=== PATIENT | female | born 1995 | race Asian ===

== ENCOUNTER 2025-06-06 08:43 | Inpatient (IN) ==
[2025-06-06] MEDS ORDERED: LIDOCAINE 1% LOCAL 20 ML VIAL INFIL PRN (09:38)
[2025-06-06] MEDS ORDERED: OXYTOCIN 30 UNITS/NSS 30 UNITS/500 ML BAG IV PRN (09:38)
[2025-06-06 10:10] LABS: Hematocrit (blood only) 35.4 % (37.0-47.0); Hemoglobin 12.1 g/dl (12.0-16.0); Mean Corpuscular Hemoglobin 31.0 pg (25.0-34.0); Mean Corpuscular Volume 90.8 fL (80.0-100.0); Platelet Count 149 K/uL (130-400); RDW Standard Deviation 41.6 fL (36.4-46.3); Red Blood Count 3.90 M/uL (4.20-5.40); White Blood Count 8.92 K/ul (4.8-10.8)
[2025-06-06] MEDS: LACTATED RINGER'S 1,000 ML IV PRN (10:12)
[2025-06-06] MEDS: PENICILLIN GK 6 MU in DEXTROSE 5% 250 ML IV STA (10:12)
[2025-06-06] MEDS: OXYTOCIN 30 UNITS/NSS 30 UNITS/500 ML BAG IV PRN (11:18)
[2025-06-06] MEDS ORDERED: ROPIVACAINE 0.5% PF 5 MG/ML 20 ML VIAL EPI PRN (12:16)
[2025-06-06] MEDS ORDERED: BUPIVACAINE 0.25% PF 30 ML VIAL EPI PRN (12:16)
[2025-06-06] MEDS ORDERED: fentANYL 2 MCG/ML BUPIVacaine 0.125%-NSS 100ML BAG EPI PRN (12:16)
[2025-06-06] MEDS ORDERED: NALOXONE HCL 1 MG in SODIUM CHLORIDE 0.9% 1,000 ML IV PRN ×2 (12:16→19:32)
[2025-06-06] MEDS ORDERED: NALBUPHINE HCL INJ 10 MG/ML AMP IV PRN ×2 (12:16→19:32)
[2025-06-06] MEDS ORDERED: LIDOCAINE 2% MPF LOCAL 5 ML VIAL EPI PRN (12:16)
[2025-06-06] MEDS ORDERED: diphenhydrAMINE 50 MG/ML VIAL IV PRN ×3 (12:16→19:32)
[2025-06-06] MEDS ORDERED: SODIUM CHLORIDE 0.9% PF INJ 10 ML VIAL EPI PRN (12:16)
[2025-06-06] MEDS ORDERED: NALOXONE HCL 0.4 MG/1 ML VIAL/CARP IV PRN ×2 (12:16→19:32)
--- NOTE | 2025-06-06 12:16 | Anesthesiology Consultation ---
Date of Service June 06, 2025 Assessment & Plan Chart Review Chart Review: Acceptable Risk for Surgery and Patient NOT seen in Pre Admission Testing Consults Requested none History Height/Weight Height: 4 ft 11 in Weight: 59.874 kg Allergies Allergy/AdvReac Type Severity Reaction Status Date / Time No Known Allergies Allergy Verified 06/02/25 16:10 Medications Home Medications Medication Instructions Recorded Confirmed Last Taken escitalopram oxalate 10 mg tablet 10 mg PO DAILY 06/19/24 06/06/25 Unknown (Lexapro) promethazine 12.5 mg tablet 12.5 mg PO Q6H PRN nausea and 12/24/24 06/06/25 Unknown vomiting #14 tabs acetone (urine) test (Ketone Urine #50 ea 04/16/25 06/02/25 Unknown Test strips) blood sugar diagnostic (OneTouch #150 ea 04/16/25 06/02/25 Unknown Verio test strips) blood-glucose meter (OneTouch #1 ea 04/16/25 06/02/25 Unknown Verio Flex Meter) lancets 33 gauge (OneTouch Delica #150 ea 04/16/25 06/02/25 Unknown Plus Lancet) vits no.124-ferrous fum 1 tab PO DAILY 06/06/25 06/06/25 Unknown 27 mg iron-folic acid 800 mcg tablet ( Vitamin) Active Medications Generic Name Dose Route Start Last Admin Trade Name Freq PRN Reason Stop Dose Admin Lactated Ringer's 1,000 mls @ 125 mls/hr 06/06/25 09:38 06/06/25 10:12 Lr IV 06/08/25 09:37 125 mls/hr .Q8H PRN Administration L&D Protocol Protocol Oxytocin 30 units in 500 mls @ 2 mls/hr 06/06/25 10:11 06/06/25 11:18 Pitocin 30 Units/Nss IV 06/08/25 10:10 0.12 units/hr .Q24H PRN 2 mls/hr Labor Induction/Augmentation Administration Protocol 0.12 UNITS/HR Past Medical History Medical History History of chicken pox PTSD (post-traumatic stress disorder) (05/14/24) Changing pigmented skin lesion Past Family History Family History Grandfather (Maternal) Diabetes Denies family history of Ovarian cancer Breast cancer Colorectal cancer Past Surgical History Surgical History History of removal of skin mole S/P wisdom tooth extraction Social History Smoking Status: Never smoker Do You Dip or Chew Tobacco: No Hx Alcohol Use: No Hx Substance Use: No substance use type: does not use Physical Exam Vital Signs Last Vital Signs Temp 37.0 C 06/06/25 11:22 Pulse 95 H 06/06/25 11:22 Resp 16 06/06/25 11:22 BP 107/66 06/06/25 11:22 Testing Laboratory Results 06/06/25 09:55 06/06/25 10:20 POC Glucose 104 H
[2025-06-06] MEDS: fentANYL 2 MCG/ML BUPIVacaine 0.125%-NSS 100ML BAG ONE (12:42)
[2025-06-06] MEDS: LIDOCAINE 2%/EPINEPHRINE 1:200,000 20 ML PF ONE (12:46)
[2025-06-06] MEDS: SODIUM CHLORIDE 0.9% PF INJ 10 ML VIAL ONE (12:47)
[2025-06-06] MEDS: BUPIVACAINE 0.25% PF 30 ML VIAL ONE (12:47)
[2025-06-06] MEDS: BUPIVACAINE 0.25% PF 30 ML VIAL EPI STA (12:47)
[2025-06-06] MEDS: LIDOCAINE 2%/EPINEPHRINE 1:200,000 20 ML PF EPI STA (12:48)
[2025-06-06] MEDS: SODIUM CHLORIDE 0.9% PF INJ 10 ML VIAL EPI STA (12:48)
[2025-06-06] MEDS: PENICILLIN GK 3 MU in DEXTROSE 5% 100 ML IV PRN (14:05)
[2025-06-06] MEDS ORDERED: LACTATED RINGER'S 1,000 ML IV SCH ×2 (15:15→16:15)
--- NOTE | 2025-06-06 15:21 | Labor Progress Brief Note ---
Date of Service June 06, 2025 Subjective 29yo @ 36w1d with PPROM. Patient has been admitted, given PCN for GBS unknown , and augmented with pitocin. Her pain was addressed with an epidural which she requested shortly after arrival, at 1-2cm dilation. She is comfortable physically but anxious about well being. This was a conceived with donor sperm. Her parents are here as her support persons today. Assessment & Plan (1) PROM (premature rupture of membranes): Plan: PPROM at 36w1d, with heart rate Cat 2 during contractions. Repositioning and fluid boluses not restoring Cat 1 FHT so far. No cervical change between admission and now. Patient counseled that she is remote from delivery, and while we do not need to make a change in plans right now, we will need to observe her closely as we try to use resuscitation measures to allow her to continue being induced. RN Corazon in room during counseling. We explained what the late decelerations clearly visible on her tracing indicate. We also discussed that she could elect a now, if she prefers. She asked good questions about the risks and benefits of both induction to a vaginal delivery and proceeding now to . The patient would like to abandon induction and move to now. Pitocin was stopped. Of note, decelerations do cease when contractions space apart, therefore a diagnosis of intolerance to labor will be applied and we will proceed with delivery. Admission and Anticipated Discharge Date Admission Date: June 06, 2025 Physical Exam Genitourinary: 2/90/-2 LOF clear continues FHT 140 mod fish no acc +late decels Ctx in an irregular pattern with coupleting and tripleting followed by longer spaces of several minutes without ctx. Decels are noted during or after the contraction groupings. Pit @ 4 Results & Data Vital Signs (Past 12 Hours) Vital Signs Temp Pulse Resp BP Pulse Ox 06/06/25 15:10 99 06/06/25 15:10 99 H 06/06/25 15:05 100 06/06/25 15:05 95 H 06/06/25 15:00 98 06/06/25 15:00 80 06/06/25 15:00 103/59 L 06/06/25 14:55 98 06/06/25 14:55 71 06/06/25 14:50 98 06/06/25 14:50 99 H 06/06/25 14:45 98 06/06/25 14:45 72 06/06/25 14:45 71 06/06/25 14:45 108/62 06/06/25 14:40 98 06/06/25 14:40 85 06/06/25 14:35 98 06/06/25 14:35 91 H 06/06/25 14:31 71 06/06/25 14:31 103/58 L 06/06/25 14:30 98 06/06/25 14:30 71 06/06/25 14:25 98 06/06/25 14:25 75 06/06/25 14:20 97 06/06/25 14:20 71 06/06/25 14:16 16 06/06/25 14:16 98.4 F 16 06/06/25 14:16 91 H 06/06/25 14:16 99/56 L 06/06/25 14:15 99 06/06/25 14:15 73 06/06/25 14:10 99 06/06/25 14:10 74 06/06/25 14:05 97 06/06/25 14:05 76 06/06/25 14:00 98 06/06/25 14:00 77 06/06/25 14:00 115/68 06/06/25 13:55 97 06/06/25 13:55 75 06/06/25 13:50 97 06/06/25 13:50 75 06/06/25 13:45 98 06/06/25 13:45 80 06/06/25 13:44 16 06/06/25 13:44 16 06/06/25 13:44 80 06/06/25 13:44 104/56 L 06/06/25 13:40 99 06/06/25 13:40 101 H 06/06/25 13:35 98 06/06/25 13:35 75 06/06/25 13:30 98 06/06/25 13:30 93 H 06/06/25 13:29 102 H 06/06/25 13:29 98/55 L 06/06/25 13:25 98 06/06/25 13:25 76 06/06/25 13:20 99 06/06/25 13:20 103 H 06/06/25 13:15 98 06/06/25 13:15 76 06/06/25 13:11 89 06/06/25 13:11 96/55 L 06/06/25 13:10 98 06/06/25 13:10 90 06/06/25 13:06 104 H 06/06/25 13:06 94/50 L 06/06/25 13:05 98 06/06/25 13:05 98 H 06/06/25 13:01 90 06/06/25 13:01 94/55 L 06/06/25 13:00 98 06/06/25 13:00 87 06/06/25 12:56 94 H 06/06/25 12:56 95/53 L 06/06/25 12:55 98 06/06/25 12:55 93 H 06/06/25 12:51 83 06/06/25 12:51 100/57 L 06/06/25 12:50 98 06/06/25 12:50 83 06/06/25 12:46 80 06/06/25 12:46 102/58 L 06/06/25 12:45 98 06/06/25 12:45 81 06/06/25 12:44 77 06/06/25 12:44 100/55 L 06/06/25 12:42 78 06/06/25 12:42 109/59 L 06/06/25 12:40 99 06/06/25 12:40 79 06/06/25 12:40 111/65 06/06/25 12:35 98 06/06/25 12:35 89 06/06/25 12:30 98 06/06/25 12:30 89 06/06/25 12:25 98 06/06/25 12:25 89 06/06/25 12:22 96 H 06/06/25 12:22 124/78 06/06/25 12:20 100 06/06/25 12:20 93 H 06/06/25 12:15 98 06/06/25 12:15 89 06/06/25 12:14 20 06/06/25 12:14 98.8 F 20 06/06/25 11:22 16 06/06/25 11:22 98.6 F 16 06/06/25 11:22 95 H 06/06/25 11:22 107/66 07/26/25 09:00 98.2 F 18 07/26/25 08:56 82 113/67 Coding Level of Care Code None Diagnoses PROM (premature rupture of membranes) O42.90
[2025-06-06] MEDS ORDERED: MoRPHine SULFATE PF 1 MG/ML 10 ML AMP/VIAL ONE ×2 (15:24→18:41)
[2025-06-06] MEDS ORDERED: OXYTOCIN 10 UNITS/ML VIAL ONE ×2 (15:24→18:41)
[2025-06-06] MEDS ORDERED: PHENYLEPHRINE HCL 10 MG/ML VIAL ONE (15:28)
[2025-06-06] MEDS ORDERED: LIDOCAINE 2%/EPINEPHRINE 1:200,000 20 ML PF ONE ×2 (15:31→19:01)
[2025-06-06] MEDS: ACETAMINOPHEN 500 MG TAB PO SCH (17:42)
[2025-06-06] MEDS: AZITHROMYCIN 500 MG/255 ML BAG IV SCH (17:47)
[2025-06-06] MEDS: CITRIC ACID/SODIUM CITRATE 15 ML UDC PO SCH (18:08)
--- NOTE | 2025-06-06 19:07 | Operative Report ---
PG Post Operative Report Pre & Post Diagnosis Operation Date: 06/06/25 15:20 Pre-Op Diagnosis: 1. PPROM at 36 weeks 1 day gestation 2. Gestational Diabetes 2. intolerance to labor Post-Op Diagnosis: Same plus delivery of live female I identified the patient and participated in the time-out.: Yes Procedure Operation Date: 06/06/25 15:20 Actual Procedures 1' Low Transverse Section Surgeon Delia Baugh MD Retail Account Executive Corazon Young RN Estimated Blood Loss 523 (QBL) Findings Consistent with Post-Op Diagnosis Specimens Placenta, Cord blood Anesthesia Type L&D Only Epidural Exists Complications none Disposition Accompanied Patient To Recovery: Yes Disposition: L&D Description of Procedure The patient was placed operating table in the supine position with a leftward tilt. She was prepped and draped in standard sterile fashion. The anesthetic was tested and found to be adequate. A time-out was held, identifying correct patient, procedure, positioning and preoperative antibiotics. There were no concerns. A Pfannenstiel skin incision was made with a knife and taken down to the underlying layer of fascia. The fascia was incised in the midline with the knife and taken out laterally with scissors. The superior edge of the fascial incision was grasped, elevated and dissected off the underlying rectus both superiorly and inferiorly. The muscles were bluntly in the midline. The peritoneum was entered bluntly. The incision was then stretched. The bladder retractor was placed. The vesicouterine peritoneum was identified, entered with scissors and taken out laterally with scissors. The bladder flap was created digitally. A hysterotomy incision was created transversely in the lower uterine segment, final entry being accomplished in a blunt manner with the woodyard crane operator's fingers. Clear amniotic fluid was encountered. The woodyard crane operator's hand was used to elevate the head to the hysterotomy. The head was delivered using mild fundal pressure, and the shoulders and body followed without difficulty. The cord was clamped and cut and the was then handed off to the awaiting communication specialist. Cord blood was obtained. The placenta was Manually extracted. The uterus was exteriorized and cleared of all clot and debris with moistened laparotomy sponges. The hysterotomy incision was repaired in two layers, the first in a running locked layer, the second in an imbricating layer. The ovaries and tubes were seen to be normal bilaterally. The uterus was gently replaced in the abdomen, and the gutters were cleared of clot and debris. A final inspection of the hysterotomy revealed good hemostasis. The rectus muscles were allowed to reapproximate naturally. The fascia was then reapproximated with 1 Vicryl in a running nonlocked manner. The fascia was examined and found to be free of defect following closure. The subcutaneous tissue was copiously irrigated, then the skin edges were closed with 4-0 monocryl in a subcuticular fashion. A dermabond dressing was applied. The kaminski was found to be draining clear yellow urine at completion of the procedure. I attest to the content of the Intraoperative Record and any orders documented therein. Any exceptions are noted below. I attest to the content of the Intraoperative Record and any orders documented therein. Any exceptions are noted below. OB Procedure Charges 04392
[2025-06-06] MEDS ORDERED: CALCIUM CARBONATE 500 MG CHEWABLE TAB PO PRN (19:25)
[2025-06-06] MEDS ORDERED: PROMETHAZINE 12.5 MG/50.5 ML BAG IV PRN (19:25)
[2025-06-06] MEDS ORDERED: MAGNESIUM HYDROXIDE SUSP 30 ML UDC PO PRN (19:25)
[2025-06-06] MEDS ORDERED: HYDROCORTISONE ACETATE 25 MG SUPP PR PRN (19:25)
[2025-06-06] MEDS ORDERED: ONDANSETRON INJ 2 MG/ML 2 ML VIAL IV PRN ×2 (19:25→19:32)
[2025-06-06] MEDS ORDERED: HYDROmorphone INJ 0.5 MG/0.5 ML SYR IV PRN ×2 (19:25→19:32)
[2025-06-06] MEDS ORDERED: diphenhydrAMINE Capsule 25 MG CAP PO PRN (19:25)
[2025-06-06] MEDS ORDERED: BENZOCAINE 20% SPRY 85 APPLN/85 GM CAN EXT PRN (19:25)
[2025-06-06] MEDS ORDERED: SENNA 8.6 MG TAB PO PRN (19:25)
[2025-06-06] MEDS ORDERED: NALOXONE HCL 0.08 MG in SYRINGE 1.8 ML IV PRN (19:32)
[2025-06-06] MEDS ORDERED: MoRPHine SULFATE 2 MG/ML CARP IV PRN (19:32)
[2025-06-06] MEDS ORDERED: ACETAMINOPHEN 1,000 MG/100 ML VIAL IV PRN (19:32)
[2025-06-06] MEDS ORDERED: MEPERIDINE HCL 25 MG/ML CARP/VIAL IV PRN (19:32)
[2025-06-06] MEDS ORDERED: PROMETHAZINE 6.25 MG/50.25 ML BAG IV PRN (19:32)
[2025-06-06] MEDS ORDERED: MoRPHine SULFATE PF 1 MG/ML 10 ML AMP/VIAL INT SPINAL ONE (19:32)
[2025-06-06] MEDS ORDERED: KETOROLAC 30 MG/ML VIAL IV PRN (19:32)
[2025-06-06] MEDS: KETOROLAC 30 MG/ML VIAL IV SCH (19:43)
[2025-06-06] MEDS ORDERED: SODIUM CHLORIDE 0.9% 1,000 ML IV SCH (19:45)
[2025-06-06] MEDS ORDERED: NO NARCOTICS OR SEDATIVES SCH (19:45)
[2025-06-06] MEDS: LACTATED RINGER'S 500 ML IV PRN (19:50)
[2025-06-06] MEDS: DIPHTHER/TETAN/PERTUS Vaccine (Tdap, Adol/Adult) 0.5mL IM ONE (19:51)
[2025-06-06] MEDS: LACTATED RINGER'S 1,000 ML IV SCH (19:51)
[2025-06-06] MEDS: OXYTOCIN 20 UNITS/LR 1,002 ML IV SCH (19:54)
--- NOTE | 2025-06-06 21:35 | Anesthesiology Progress Note ---
Date of Service June 06, 2025 Anesthesia Post Procedure Vital Signs Vital Signs: Temp Pulse Resp BP BP Pulse Ox O2 Del Method 06/06/25 21:29 93 06/06/25 21:29 87 06/06/25 21:26 86 06/06/25 21:26 108/64 06/06/25 21:24 94 06/06/25 21:24 86 06/06/25 21:22 94 06/06/25 21:22 88 06/06/25 21:19 98 06/06/25 21:19 89 06/06/25 21:15 91 H 06/06/25 21:15 96/53 L 06/06/25 21:14 94 06/06/25 21:14 91 H 06/06/25 21:11 92 06/06/25 21:11 91 H 06/06/25 21:09 96 06/06/25 21:09 87 06/06/25 21:06 83 06/06/25 21:06 99/58 L 06/06/25 21:04 97 06/06/25 21:04 89 06/06/25 20:59 96 06/06/25 20:59 85 06/06/25 20:56 88 06/06/25 20:56 109/56 L 06/06/25 20:54 98 06/06/25 20:54 90 06/06/25 20:50 93 06/06/25 20:50 97 H 06/06/25 20:49 97 06/06/25 20:49 95 H 06/06/25 20:46 89 06/06/25 20:46 112/77 06/06/25 20:44 97 06/06/25 20:44 92 H 06/06/25 20:39 98 06/06/25 20:39 88 06/06/25 20:38 92 06/06/25 20:38 92 H 06/06/25 20:36 85 06/06/25 20:36 99/61 L 06/06/25 20:34 100 06/06/25 20:34 87 06/06/25 20:29 99 06/06/25 20:29 80 06/06/25 20:29 91 06/06/25 20:29 82 06/06/25 20:26 81 06/06/25 20:26 120/64 06/06/25 20:24 99 06/06/25 20:24 81 06/06/25 20:19 100 06/06/25 20:19 87 06/06/25 20:16 85 06/06/25 20:16 92/56 L 06/06/25 20:14 100 06/06/25 20:14 81 06/06/25 20:11 92 06/06/25 20:11 87 06/06/25 20:10 36.6 C 12 100 Room Air 06/06/25 20:09 97 06/06/25 20:09 91 H 06/06/25 20:06 97 H 06/06/25 20:06 81/52 L 06/06/25 20:04 89 L 06/06/25 20:04 87 06/06/25 19:59 100 06/06/25 19:59 85 06/06/25 19:56 81 06/06/25 19:56 98/50 L 06/06/25 19:54 100 06/06/25 19:54 85 06/06/25 19:50 85 06/06/25 19:50 100/51 L 06/06/25 19:49 98 06/06/25 19:49 82 06/06/25 19:46 90 06/06/25 19:46 86/43 L 06/06/25 19:44 98 06/06/25 19:44 86 06/06/25 19:39 98 06/06/25 19:39 92 H 06/06/25 19:36 93 H 06/06/25 19:36 80/45 L 06/06/25 19:34 98 06/06/25 19:34 90 06/06/25 19:29 99 06/06/25 19:29 93 H 06/06/25 19:25 88 06/06/25 19:25 99/58 L 06/06/25 19:24 97 06/06/25 19:24 90 06/06/25 19:22 93 06/06/25 19:22 92 H 06/06/25 19:19 100 06/06/25 19:19 89 06/06/25 19:18 85 06/06/25 19:18 102/59 L 06/06/25 19:17 93 06/06/25 19:17 87 06/06/25 19:14 98 06/06/25 19:14 85 06/06/25 19:11 92 06/06/25 19:11 78 06/06/25 19:10 36.5 C 10 L 97/47 L 100 Room Air 06/06/25 19:09 99 06/06/25 19:09 79 06/06/25 19:06 87 06/06/25 19:06 97/47 L 06/06/25 18:15 83 06/06/25 18:15 113/65 06/06/25 18:10 98 06/06/25 18:10 78 06/06/25 18:09 93 06/06/25 18:09 98 H 06/06/25 18:05 98 06/06/25 18:05 85 06/06/25 18:00 98 06/06/25 18:00 83 06/06/25 17:59 86 06/06/25 17:59 102/56 L 06/06/25 17:55 98 06/06/25 17:55 81 06/06/25 17:50 98 06/06/25 17:50 92 H 06/06/25 17:49 92 06/06/25 17:49 89 06/06/25 17:45 98 06/06/25 17:45 80 06/06/25 17:44 82 06/06/25 17:44 119/67 06/06/25 17:40 97 06/06/25 17:40 89 06/06/25 17:35 97 06/06/25 17:35 80 06/06/25 17:30 97 06/06/25 17:30 88 06/06/25 17:30 118/68 06/06/25 17:25 97 06/06/25 17:25 74 06/06/25 17:20 97 06/06/25 17:20 78 06/06/25 17:15 97 06/06/25 17:15 81 06/06/25 17:15 73 06/06/25 17:15 107/56 L 06/06/25 17:10 98 06/06/25 17:10 88 06/06/25 17:07 16 06/06/25 17:07 37.2 C 16 06/06/25 17:05 96 06/06/25 17:05 78 06/06/25 17:00 97 06/06/25 17:00 82 06/06/25 16:59 20 06/06/25 16:59 20 06/06/25 16:59 93 H 06/06/25 16:59 101/58 L 06/06/25 16:55 97 06/06/25 16:55 86 06/06/25 16:50 98 06/06/25 16:50 88 06/06/25 16:45 97 06/06/25 16:45 80 06/06/25 16:45 111/55 L 06/06/25 16:40 97 06/06/25 16:40 88 06/06/25 16:35 97 06/06/25 16:35 75 06/06/25 16:30 98 06/06/25 16:30 82 06/06/25 16:30 105/57 L 06/06/25 16:25 97 06/06/25 16:25 79 06/06/25 16:20 97 06/06/25 16:20 76 06/06/25 16:15 98 06/06/25 16:15 101 H 06/06/25 16:14 90 06/06/25 16:14 103/55 L 06/06/25 16:10 97 06/06/25 16:10 77 06/06/25 16:05 99 06/06/25 16:05 80 06/06/25 16:00 98 06/06/25 16:00 76 06/06/25 16:00 75 06/06/25 16:00 107/63 06/06/25 15:55 98 06/06/25 15:55 80 06/06/25 15:50 100 06/06/25 15:50 89 06/06/25 15:45 99 06/06/25 15:45 80 06/06/25 15:45 111/69 06/06/25 15:40 99 06/06/25 15:40 111 H 06/06/25 15:35 100 06/06/25 15:35 81 06/06/25 15:30 99 06/06/25 15:30 83 06/06/25 15:29 81 06/06/25 15:29 134/65 06/06/25 15:25 99 06/06/25 15:25 84 06/06/25 15:20 99 06/06/25 15:20 109 H 06/06/25 15:15 99 06/06/25 15:15 90 06/06/25 15:15 109 H 06/06/25 15:15 114/62 06/06/25 15:10 99 06/06/25 15:10 99 H 06/06/25 15:05 100 06/06/25 15:05 95 H 06/06/25 15:00 98 06/06/25 15:00 80 06/06/25 15:00 103/59 L 06/06/25 14:55 98 06/06/25 14:55 71 06/06/25 14:50 98 06/06/25 14:50 99 H 06/06/25 14:45 98 06/06/25 14:45 72 06/06/25 14:45 71 06/06/25 14:45 108/62 06/06/25 14:40 98 06/06/25 14:40 85 06/06/25 14:35 98 06/06/25 14:35 91 H 06/06/25 14:31 71 06/06/25 14:31 103/58 L 06/06/25 14:30 98 06/06/25 14:30 71 06/06/25 14:25 98 06/06/25 14:25 75 06/06/25 14:20 97 06/06/25 14:20 71 06/06/25 14:16 16 06/06/25 14:16 36.9 C 16 06/06/25 14:16 91 H 06/06/25 14:16 99/56 L 06/06/25 14:15 99 06/06/25 14:15 73 06/06/25 14:10 99 06/06/25 14:10 74 06/06/25 14:05 97 06/06/25 14:05 76 06/06/25 14:00 98 06/06/25 14:00 77 06/06/25 14:00 115/68 06/06/25 13:55 97 06/06/25 13:55 75 06/06/25 13:50 97 06/06/25 13:50 75 06/06/25 13:45 98 06/06/25 13:45 80 06/06/25 13:44 16 06/06/25 13:44 16 06/06/25 13:44 80 06/06/25 13:44 104/56 L 06/06/25 13:40 99 06/06/25 13:40 101 H 06/06/25 13:35 98 06/06/25 13:35 75 06/06/25 13:30 98 06/06/25 13:30 93 H 06/06/25 13:29 102 H 06/06/25 13:29 98/55 L 06/06/25 13:25 98 06/06/25 13:25 76 06/06/25 13:20 99 06/06/25 13:20 103 H 06/06/25 13:15 98 06/06/25 13:15 76 06/06/25 13:11 89 06/06/25 13:11 96/55 L 06/06/25 13:10 98 06/06/25 13:10 90 06/06/25 13:06 104 H 06/06/25 13:06 94/50 L 06/06/25 13:05 98 06/06/25 13:05 98 H 06/06/25 13:01 90 06/06/25 13:01 94/55 L 06/06/25 13:00 98 06/06/25 13:00 87 06/06/25 12:56 94 H 06/06/25 12:56 95/53 L 06/06/25 12:55 98 06/06/25 12:55 93 H 06/06/25 12:51 83 06/06/25 12:51 100/57 L 06/06/25 12:50 98 06/06/25 12:50 83 06/06/25 12:46 80 06/06/25 12:46 102/58 L 06/06/25 12:45 98 06/06/25 12:45 81 06/06/25 12:44 77 06/06/25 12:44 100/55 L 06/06/25 12:42 78 06/06/25 12:42 109/59 L 06/06/25 12:40 99 06/06/25 12:40 79 06/06/25 12:40 111/65 06/06/25 12:35 98 06/06/25 12:35 89 06/06/25 12:30 98 06/06/25 12:30 89 07/26/25 12:25 98 06/06/25 12:25 89 06/06/25 12:22 96 H 06/06/25 12:22 124/78 06/06/25 12:20 100 06/06/25 12:20 93 H 06/06/25 12:15 98 06/06/25 12:15 89 06/06/25 12:14 20 06/06/25 12:14 37.1 C 20 06/06/25 11:22 16 06/06/25 11:22 37.0 C 16 06/06/25 11:22 95 H 06/06/25 11:22 107/66 06/06/25 09:00 36.8 C 18 06/06/25 08:56 82 113/67 Pain Intensity Abdomen: Pain Intensity: 4 Transfer of Care Handoff Completed per policy Notes Mental Status: alert / awake / arousable and participated in evaluation Patient Amnestic to Procedure: Yes Nausea / Vomiting: adequately controlled Pain: adequately controlled Airway Patency, RR, SpO2: stable & adequate BP & HR: stable & adequate Hydration State: stable & adequate Anesthetic Complications: no major complications apparent
[2025-06-06] MEDS: SIMETHICONE 80 MG CHEW PO SCH (22:41)
[2025-06-06] MEDS: DOCUSATE SODIUM 100 MG CAP PO SCH (22:41)
[2025-06-06] MEDS: ESCITALOPRAM OXALATE 10 MG TAB PO SCH (22:42)
[2025-06-07] MEDS: ACETAMINOPHEN 325 MG TAB PO SCH (01:27)
[2025-06-07 06:51] LABS: Hematocrit (blood only) 27.7 % (37.0-47.0); Hemoglobin 9.3 g/dl (12.0-16.0); Immature Granulocytes # (auto) 0.02 K/uL (0.01-0.20); Immature Granulocytes % (auto) 0.2 %; Mean Corpuscular Hemoglobin 30.6 pg (25.0-34.0); Mean Corpuscular Volume 91.1 fL (80.0-100.0); Platelet Count 117 K/uL (130-400); RDW Standard Deviation 42.1 fL (36.4-46.3); Red Blood Count 3.04 M/uL (4.20-5.40); White Blood Count 9.78 K/ul (4.8-10.8)
[2025-06-07] MEDS: FERROUS SULFATE 325 MG TAB PO SCH (07:26)
[2025-06-07] MEDS: PRENATAL VITAMIN 1 TAB PO SCH (07:26)
--- NOTE | 2025-06-07 07:57 | Obstetrical Progress Note ---
Date of Service June 07, 2025 Assessment & Plan (1) state: Routine care. Subjective Ambulation: ambulating normally Voiding: no voiding problems Passing Gas:: Yes Diet Tolerance:: regular diet Lochia:: Small Feeding Type:: bottle feeding Current Pain Level(1-10): 0 Physical Exam Constitutional WD/WN, vitals as above Eyes PERRL, conjunctivae normal, anicteric sclerae ENMT external ear and nose normal, oropharynx normal Neck trachea midline, no thyromegaly Respiratory normal respiratory effort and able to speak in complete sentences; no respiratory distress, no labored breathing and does not use accessory muscles Cardiovascular Rate/Rhythm: regular rate and regular rhythm Extremities: no calf tenderness and no pedal edema Chest (Breasts) Breast: normal inspection of breasts Gastrointestinal (Abdomen) Inspection/Auscultation: abdomen normal to inspection; abdomen not distended incision c/d/i with surgical glue Musculoskeletal no cyanosis or clubbing, extremities motor strength 5/5 Skin no rashes, warm and dry Neurologic patellar DTR's 2+ bilat, sensation intact Psychiatric A+Ox3, euthymic affect Genitourinary Speculum/Bimanual Exam: uterus nontender OB Exam Abdomen: + fundal height (at umbilicus) Fundus: + firm Results & Data Vital Signs (Past 12 Hours) Vital Signs Temp Pulse Pulse Resp BP BP Pulse Ox 06/07/25 06:26 18 99 06/07/25 05:00 14 96 06/07/25 04:20 16 99 06/07/25 03:11 98.1 F 77 16 98/61 L 98 06/07/25 03:00 14 98 06/07/25 02:13 16 99 06/07/25 01:09 12 99 06/07/25 00:15 14 99 06/06/25 23:00 14 98 06/06/25 23:00 98.4 F 87 14 105/62 98 06/06/25 22:30 14 100 06/06/25 21:54 92 06/06/25 21:54 94 H 06/06/25 21:49 93 06/06/25 21:49 88 06/06/25 21:46 88 06/06/25 21:46 97/54 L 06/06/25 21:44 95 06/06/25 21:44 94 H 06/06/25 21:39 93 06/06/25 21:39 90 06/06/25 21:36 94 06/06/25 21:36 92 H 06/06/25 21:36 96/55 L 06/06/25 21:34 93 06/06/25 21:34 86 06/06/25 21:29 93 06/06/25 21:29 87 06/06/25 21:26 86 06/06/25 21:26 108/64 06/06/25 21:24 94 06/06/25 21:24 86 06/06/25 21:22 94 06/06/25 21:22 88 06/06/25 21:19 98 06/06/25 21:19 89 06/06/25 21:15 91 H 06/06/25 21:15 96/53 L 06/06/25 21:14 94 06/06/25 21:14 91 H 06/06/25 21:11 92 06/06/25 21:11 91 H 06/06/25 21:10 97.9 F 06/06/25 21:09 96 06/06/25 21:09 87 06/06/25 21:06 83 06/06/25 21:06 99/58 L 06/06/25 21:04 97 06/06/25 21:04 89 06/06/25 20:59 96 06/06/25 20:59 85 06/06/25 20:56 88 06/06/25 20:56 109/56 L 06/06/25 20:54 98 06/06/25 20:54 90 06/06/25 20:50 93 06/06/25 20:50 97 H 06/06/25 20:49 97 06/06/25 20:49 95 H 06/06/25 20:46 89 06/06/25 20:46 112/77 06/06/25 20:44 97 06/06/25 20:44 92 H 06/06/25 20:39 98 06/06/25 20:39 88 06/06/25 20:38 92 06/06/25 20:38 92 H 06/06/25 20:36 85 06/06/25 20:36 99/61 L 06/06/25 20:34 100 06/06/25 20:34 87 06/06/25 20:29 99 07/26/25 20:29 80 06/06/25 20:29 91 06/06/25 20:29 82 06/06/25 20:26 81 06/06/25 20:26 120/64 06/06/25 20:24 99 06/06/25 20:24 81 06/06/25 20:19 100 06/06/25 20:19 87 06/06/25 20:16 85 06/06/25 20:16 92/56 L 06/06/25 20:14 100 06/06/25 20:14 81 06/06/25 20:11 92 06/06/25 20:11 87 06/06/25 20:10 97.9 F 12 100 06/06/25 20:09 97 06/06/25 20:09 91 H 06/06/25 20:06 97 H 06/06/25 20:06 81/52 L 06/06/25 20:04 89 L 06/06/25 20:04 87 06/06/25 19:59 100 06/06/25 19:59 85 06/06/25 19:56 81 06/06/25 19:56 98/50 L O2 Del Method 06/07/25 06:26 06/07/25 05:00 06/07/25 04:20 06/07/25 03:11 Room Air 06/07/25 03:00 06/07/25 02:13 06/07/25 01:09 06/07/25 00:15 06/06/25 23:00 06/06/25 23:00 Room Air 06/06/25 22:30 06/06/25 21:54 06/06/25 21:54 06/06/25 21:49 06/06/25 21:49 06/06/25 21:46 06/06/25 21:46 06/06/25 21:44 06/06/25 21:44 06/06/25 21:39 06/06/25 21:39 06/06/25 21:36 06/06/25 21:36 06/06/25 21:36 06/06/25 21:34 06/06/25 21:34 06/06/25 21:29 06/06/25 21:29 06/06/25 21:26 06/06/25 21:26 06/06/25 21:24 06/06/25 21:24 06/06/25 21:22 06/06/25 21:22 06/06/25 21:19 06/06/25 21:19 06/06/25 21:15 06/06/25 21:15 06/06/25 21:14 06/06/25 21:14 06/06/25 21:11 06/06/25 21:11 06/06/25 21:10 06/06/25 21:09 06/06/25 21:09 06/06/25 21:06 06/06/25 21:06 06/06/25 21:04 06/06/25 21:04 06/06/25 20:59 06/06/25 20:59 06/06/25 20:56 06/06/25 20:56 06/06/25 20:54 06/06/25 20:54 06/06/25 20:50 06/06/25 20:50 06/06/25 20:49 06/06/25 20:49 06/06/25 20:46 06/06/25 20:46 06/06/25 20:44 06/06/25 20:44 06/06/25 20:39 06/06/25 20:39 06/06/25 20:38 06/06/25 20:38 06/06/25 20:36 06/06/25 20:36 06/06/25 20:34 06/06/25 20:34 06/06/25 20:29 06/06/25 20:29 06/06/25 20:29 06/06/25 20:29 06/06/25 20:26 06/06/25 20:26 06/06/25 20:24 06/06/25 20:24 06/06/25 20:19 06/06/25 20:19 06/06/25 20:16 06/06/25 20:16 06/06/25 20:14 06/06/25 20:14 06/06/25 20:11 06/06/25 20:11 06/06/25 20:10 Room Air 06/06/25 20:09 06/06/25 20:09 06/06/25 20:06 06/06/25 20:06 06/06/25 20:04 06/06/25 20:04 06/06/25 19:59 06/06/25 19:59 06/06/25 19:56 06/06/25 19:56
[2025-06-07] MEDS ORDERED: KETOROLAC 30 MG/ML VIAL IV PRN (19:02)
[2025-06-07] MEDS: IBUPROFEN 600 MG TAB PO SCH (19:16)
[2025-06-07] MEDS: ESCITALOPRAM OXALATE 10 MG TAB PO SCH (21:30)
--- NOTE | 2025-06-08 05:35 | Obstetrical Progress Note ---
Date of Service June 08, 2025 Assessment & Plan (1) state: Plan: Feels well today. Vital signs stable Continue post- care Encourage ambulation and Pain controlled with ibuprofen Hgb stable Anticipate discharge home tomorrow, follow up with Dr. Baugh in 6 weeks. Admission and Anticipated Discharge Date Admission Date: June 06, 2025 Anticipated date of discharge: 06/09/25 Supervising Physician Co-Signing Physician Notes Resident Physician Supervision Note: I interviewed and examined the patient. Discussed with Dr. Guillen and agree with findings and plan as documented in the note. Any exceptions or clarifications are listed here: [ ] Documented By: Delia Baugh MD, FACOG Subjective 31 y/o day 2 s/p . Vaginal delivery was when patient presented to L&D with contractions and 1-2 cm dilation. FHT Category 2 at the time. Vaginal delivery attempted, however there were NRFHT on monitoring, resulting in proceeding to delivery. was complicated by PPROM at 36w 0d and GDM. Ambulation: ambulating fine; having trouble pulling herself up to a seated position due to abdominal tenderness. Voiding: no voiding problems Passing Gas:: Yes Diet Tolerance:: regular diet Lochia:: Small Feeding Type:: breast feeding Current Pain Level: 6/10. Pain is mostly abdominal muscle tenderness/cramping. Only been taking tylenol and ibuprofen as scheduled. Encouraged to take perocet prn as it is prescribed if pain is not controlled. Resting comfortably this AM in NAD. Denies VANN, CP, SOB, N/V/D, LE pain/swelling. Review of Systems Review of Systems: All systems reviewed & are unremarkable except as noted in HPI & below Physical Exam Physical Exam: General: patient resting comfortably, NAD, non-toxic in appearance, AA&O x 4, a nswers questions appropriately. Skin: warm, dry, intact HEENT: NC/AT, anicteric sclera, conjunctiva without injection, moist mucus membranes. Heart: +S1/S2, regular, no m/r/g Lungs: equal air entry bilaterally, no rales/rhonchi/wheezes Abd: +BS, soft, NT/ND, uterine fundus firm at umbilicus, caesarean incision C/D/I. Ext: warm, no clubbing/cyanosis or edema, Belén's neg. SCDs in place. Neuro: nonfocal, patient AA&O x 4, speech intact, no facial droop, moving all extremities on command. Constitutional: WD/WN, vitals as above Results & Data Vital Signs (Past 12 Hours) Vital Signs Temp Pulse Resp BP Pulse Ox O2 Del Method 06/07/25 22:56 36.5 C 77 16 102/65 98 Room Air 06/07/25 19:15 36.5 C 80 18 98/64 L 97 Room Air
[2025-06-08 06:06] LABS: Hematocrit (blood only) 27.4 % (37.0-47.0); Hemoglobin 9.2 g/dl (12.0-16.0)
[2025-06-08] MEDS: IBUPROFEN 600 MG TAB PO PRN (19:59)
[2025-06-09] MEDS: ACETAMINOPHEN 325 MG TAB PO PRN (05:23)
--- NOTE | 2025-06-09 05:57 | Obstetrical Progress Note ---
Date of Service June 09, 2025 Assessment & Plan (1) state: Plan: Feels well today. Vital signs stable Continue post- care Encourage ambulation and Pain controlled with ibuprofen Hgb stable Anticipate discharge home tomorrow, follow up with Dr. Baugh in 6 weeks. Admission and Anticipated Discharge Date Admission Date: June 06, 2025 Anticipated date of discharge: 06/09/25 Supervising Physician Co-Signing Physician Notes Resident Physician Supervision Note: I was present with Dr. Guillen during the history and exam. I discussed the case with the resident and agree with the findings and plan as documented in the note. Any exceptions or clarifications are listed here: POD#3 doing well. DC home today. Rx Percocet #10 tabs to pharmacy. Documented By: Chaya Quintana, DO Subjective 31 y/o day 3 s/p . Patient presented to L&D with contractions and 1-2 cm dilation. FHT Category 2 at the time. Vaginal delivery attempted, however there were NRFHT on monitoring, resulting in proceeding to c- section delivery. was complicated by PPROM at 36w 0d and GDM. Ambulation: ambulating normal; using abdominal binder which has been helping tenderness Voiding: no voiding problem Passing Gas:: Yes Diet Tolerance:: regular diet Lochia:: Small Feeding Type:: breast feeding Current Pain Level: 5/10. Pain is mostly abdominal muscle tenderness. Taking tylenol and ibuprofen as scheduled. . Resting comfortably this AM in NAD. Denies VANN, CP, SOB, N/V/D, LE pain/swelling. Physical Exam Physical Exam: General: patient resting comfortably, NAD, non-toxic in appearance, AA&O x 4, answers questions appropriately. Skin: warm, dry, intact HEENT: NC/AT, anicteric sclera, conjunctiva without injection, moist mucus membranes. Heart: +S1/S2, regular, no m/r/g Lungs: equal air entry bilaterally, no rales/rhonchi/wheezes Abd: +BS, soft, NT/ND, uterine fundus firm at umbilicus, caesarean incision C/D/I. Ext: warm, no clubbing/cyanosis or edema, Belén's neg. SCDs in place. Neuro: nonfocal, patient AA&O x 4, speech intact, no facial droop, moving all extremities on command. Constitutional: WD/WN, vitals as above Results & Data Vital Signs (Past 12 Hours) Vital Signs Temp Pulse Resp BP Pulse Ox O2 Del Method 06/09/25 01:27 36.5 C 76 18 102/65 98 Room Air 06/08/25 20:09 36.5 C 74 18 102/66 96 Room Air
[2025-06-09 07:27] VITALS: RESP 16; TEMP 97.9; O2SAT 97
[2025-06-09 09:01] VITALS: BP 95/61; PULSE 84
[2025-06-09] MEDS ORDERED: MEASLES, MUMPS & RUBELLA VIRUS VACCINE (MMR) 0.5ML VIAL ONE (09:36)
[2025-06-09] MEDS: MEASLES, MUMPS & RUBELLA VIRUS VACCINE (MMR) 0.5ML VIAL SQ ONE (09:41)
== END 2025-06-09 10:45 | disposition home or self-care (01) | DRG 788 ==
LOC: OPB 08:43 → 4S1 08:47 → 4E2 23:51